=== PATIENT | female | born 1955 | race Caucasian/White ===

== ENCOUNTER 2017-05-15 06:20 | Day surgery (SDC) | payer SELFPAY ==
[2017-05-08 18:20] VITALS: BMI 29.2
[2017-05-15] MEDS ORDERED: PROPOFOL 20 ML ONE ×2 (07:20)
[2017-05-15] MEDS ORDERED: BACITRACIN 3.5 GM OPTHALMIC OINT TUBE ONE (07:20)
[2017-05-15] MEDS ORDERED: TETRACAINE 0.5% OPHTH SOLN 2 ML BOTTLE ONE (07:20)
[2017-05-15] MEDS ORDERED: MIDAZOLAM HCL 2 MG/2 ML SINGLE DOSE VIAL ONE ×2 (07:20)
[2017-05-15] MEDS ORDERED: POVIDONE-IODINE 5% OPHTHALMIC PREP 30 ML SOLUTION ONE (07:20)
[2017-05-15] MEDS ORDERED: LIDOCAINE 1%/EPI 1:100000 (20 ML MULTI DOSE VIAL) ONE (07:21)
[2017-05-15] MEDS ORDERED: ceFAZolin SODIUM 1 GM VIAL ONE (07:54)
[2017-05-15] MEDS ORDERED: DEXAMETHASONE SOD PHOSPHATE 4 MG/1 ML VIAL ONE (08:06)
[2017-05-15] MEDS ORDERED: ONDANSETRON 4 MG/2 ML VIAL ONE ×2 (08:06→10:23)
[2017-05-15] MEDS ORDERED: PHENYLEPHRINE HCL 10 MG/1 ML SINGLE DOSE VIAL ONE (08:11)
[2017-05-15] MEDS ORDERED: ACETAMINOPHEN 500 MG TABLET (FP) PO PRN (10:36)
[2017-05-15] MEDS ORDERED: ONDANSETRON 4 MG/2 ML VIAL IVPUSH PRN (10:42)
[2017-05-15] MEDS ORDERED: oxyCODONE HCL 5 MG TABLET PO PRN (10:42)
[2017-05-15] MEDS ORDERED: LACTATED RINGERS SOLUTION 1,000 ML IV SCH (10:45)
[2017-05-15 11:40] VITALS: TEMP 98.2
[2017-05-15 12:22] VITALS: BP 139/83; PULSE 74
== END 2017-05-15 12:20 | disposition home or self-care (01) ==
LOC: FASU 06:20
PROVIDERS: ATTEND Ophthalmology
PROC: 08QQXZZ Repair Right Lower Eyelid, External Approach (ICD-10-PCS; 2017-05-15)
PROC: 08QRXZZ Repair Left Lower Eyelid, External Approach (ICD-10-PCS; principal; 2017-05-15 07:55)
DX: Z41.1 Encounter for cosmetic surgery (principal)
CPT/HCPCS: 94760

== ENCOUNTER 2020-08-21 09:35 | Emergency (ER) | payer OTHER, BC | END 2020-08-21 11:13 | disposition home or self-care (01) | LOC: JVIRT 09:35 | DX: U07.1 COVID-19 (principal) | CPT/HCPCS: C9803; Q3014-GT; U0003 ==